=== PATIENT | male | born 1960 ===

== ENCOUNTER 2021-02-06 18:00 | Outpatient (CLI) | payer BC | END 2021-02-06 18:01 | disposition home or self-care (01) | LOC: SLEEPLAB 18:00 | PROVIDERS: ATTEND Family Medicine Sports Medicine | DX: F51.9 Sleep disorder not due to a substance or known physiological condition, unspecified (principal); R53.83 Other fatigue; G47.00 Insomnia, unspecified; G47.33 Obstructive sleep apnea (adult) (pediatric) | CPT/HCPCS: 95806 ==

== ENCOUNTER 2022-04-10 16:46 | Outpatient (CLI) | payer BC | END 2022-04-10 16:47 | disposition home or self-care (01) | LOC: LABBT 16:46 | PROVIDERS: ATTEND Surgery | DX: Z20.822 Contact with and (suspected) exposure to COVID-19 (principal) | CPT/HCPCS: 87811 ==